=== PATIENT | female | born 1975 | race African-American/Black ===

== ENCOUNTER 2019-08-19 15:08 | Emergency (ER) | payer OTHER ==
[~2019-08-19] VITALS: Ht 154.9 cm; Wt 77.1 kg
[2019-08-19] MEDS ORDERED: NORVASC 2.5 MG2.5 M1 PO (15:15)
[2019-08-19 15:44] LABS: ABSOLUTE BASOPHILS 0.1 thou/uL (0.0-0.2); ABSOLUTE LYMPHOCYTES 2.1 thou/uL (0.8-5.3); ABSOLUTE NEUTROPHILS 6.6 thou/uL (1.6-8.1); EOSINOPHILS 0.1 %; HEMOGLOBIN 13.2 gm/dL (12.0-15.0); LYMPHOCYTES 21.6 %; MCH 27.3 pg (26.0-34.0); MCHC 32.2 g/dL (28.0-37.0); MCV 84.8 fL (80.0-100.0); MPV 9.9 fl. (7.2-11.1); NUCLEATED RBCS 0 /100WBC; PLATELET COUNT* 294 thou/uL (150-400); POLYS 67.3 %; RBC 4.84 mil/uL (4.20-5.00); RDW-CV 14.9 % (10.5-14.5); WBC 9.7 thou/uL (4.0-11.0)
[2019-08-19 15:47] LABS: CALCIUM 9.3 mg/dL (8.5-10.1); CREATININE 1.7 mg/dL (0.6-1.3)
[2019-08-19 15:52] LABS: ALBUMIN 3.8 g/dL (3.4-5.0); TOTAL BILIRUBIN 1.2 mg/dL (<0.1-1.0); TOTAL PROTEIN 9.4 g/dL (6.4-8.2)
[2019-08-19 17:30] VITALS: BP 134/70
--- NOTE | 2019-08-20 12:14 | EKG ---
[place] [address] ELECTROCARDIOGRAM REPORT Name: MARINE LOPEZ Room: [facility]#: [id number] Admission: 08/19/19 Attend Phys: Discharge: 08/19/19 Date of : 71 Date of Service: 08/19/19 1513 Report #: [id number] THIS REPORT FOR: //name// [facility] ED Test Date: 2019-08-19 Test Time: 15:13:15 Pat Name: MARINE LOPEZ Department: Room: Gender: [employer]cker: [facility] : 1975 Requested By: Nica Laureano Order Number: [id number] MD: Booker Woods Measurements Intervals [place] Rate: 88 P: 52 KS: 141 QRS: 6 QRSD: 81 T: -9 QT: 384 QTc: 465 Interpretive Statements Sinus rhythm Abnormal R-wave progression, early transition LVH by voltage Nonspecific T abnormalities, anterior leads No previous ECG available for comparison Electronically Signed On 08-20-2019 12:12:20 CDT by Booker Woods [email or web address] <ELECTRONICALLY SIGNED> By: Booker Woods MD, [facility] 08/20/19 1212 1513 1513 Booker Woods MD, [facility] /EPI
== END 2019-08-19 17:30 | disposition short-term general hospital (02) ==
LOC: M.ERS 15:08
PROVIDERS: Personal Emergency Response Attendant
DX: S06.6X0A Traumatic subarachnoid hemorrhage without loss of consciousness, initial encounter (principal); R55 Syncope and collapse; Z79.899 Other long term (current) drug therapy; X58.XXXA Exposure to other specified factors, initial encounter; Y93.89 Activity, other specified; Y92.413 State road as the place of occurrence of the external cause; Y99.9 Unspecified external cause status